=== PATIENT | female | born 1945 | race Caucasian/White ===

== ENCOUNTER → 2016-06-01 | Outpatient (CLI) | payer MEDICARE, OTHER ==
[2016-06-01 10:27] LABS: ANION GAP 13 (5-19); BLOOD UREA NITROGEN 14 mg/dL (7-20); CALCIUM 9.8 mg/dL (8.4-10.2); CARBON DIOXIDE 26 mmol/L (22-30); CHLORIDE 104 mmol/L (98-107); CREATININE RESULT 0.67 mg/dL (0.52-1.25); Direct HDL 45 mg/dL (>40); GLUCOSE 162 mg/dL (75-110); SODIUM 142.5 mmol/L (137-145); TRIGLYCERIDES 101 mg/dL (<150)
[2016-06-01 10:43] LABS: DIRECT LDL 71 mg/dL (<100)
== END ==
LOC: OD 09:05
PROVIDERS: ATTEND Family Medicine
DX: E11.65 Type 2 diabetes mellitus with hyperglycemia (principal); E78.2 Mixed hyperlipidemia; I10 Essential (primary) hypertension; Z79.899 Other long term (current) drug therapy
CPT/HCPCS: 36415; 80048; 80061; 82043; 83036; 84443

== ENCOUNTER → 2016-11-17 | Outpatient (CLI) | payer MEDICARE, OTHER ==
--- NOTE | 2016-11-17 16:04 | RADIOLOGY REPORT (SQ) ---
EXAM DESCRIPTION: U/S RETROPERITON (RENAL/AORTA) COMPLETED DATE/TIME: 11/17/2016 2:57 pm REASON FOR STUDY: UTI (N39.0) N39.0 URINARY TRACT INFECTION, SITE NOT SPECIFIED COMPARISON: None. TECHNIQUE: Dynamic and static grayscale images acquired of the kidneys and bladder and recorded on P ACS. Additional selected color Doppler and spectral images recorded. LIMITATIONS: None. FINDINGS: RIGHT KIDNEY: Normal size, 10.8 cm. Normal echogenicity. No solid or suspicious masses. No hydronephrosis. There is a 11 mm echogenic focus in a middle calyx. There is a 7 mm echogenic focu s in a middle calyx. LEFT KIDNEY: Normal size, 13.4 cm. Normal echogenicity. No solid or suspicious masses. The kidney h as a somewhat lobulated appearance versus cortical scarring. No hydronephrosis. No calcifications. BLADDER: Not evaluated. OTHER FINDINGS: No other significant finding. IMPRESSION: There appear to be intrarenal calculi in the right kidney and what may represent cortica l scarring in the left. TECHNICAL DOCUMENTATION: JOB ID: [id number] [employer]- All Rights Reserved
== END ==
LOC: RAD 13:34
PROVIDERS: ATTEND Urology
DX: N39.0 Urinary tract infection, site not specified (principal)
CPT/HCPCS: 76770

== ENCOUNTER 2016-11-24 12:32 | Emergency (ER) | payer MEDICARE, OTHER ==
[2016-11-24 13:21] VITALS: BP 145/59
--- NOTE | 2016-11-24 14:40 | ER Document Report ---
ED Cardiac - General Mode of Arrival: Ambulatory Information source: Patient TRAVEL OUTSIDE OF THE [place] IN LAST 30 DAYS: No <CORTNEY CONSTANTINO - Last Filed: 11/24/16 14:38> <SONI GIRON - Last Filed: 11/24/16 17:46> - General Chief Complaint: Chest Tightness Stated Complaint: TIGHTNESS OF CHEST Time Seen by Provider: 11/24/16 14:30 Notes: Patient is a 71-year-old female who presents to the emergency department today with complaints of chest pains which began yesterday. Patient states her symptoms began when she was picking up things and putting them in a trailer. Patient mentions that her brother this morning which has added to her recent stressors. Patient states this chest tightness lasted until arrival here. Patient states she has been pain-free for quite some time here. Patient requesting to go home. (CORTNEY CONSTANTINO) - Related Data Allergies/Adverse Reactions: aspirin Allergy (Verified 11/24/16 13:19) ciprofloxacin [From Cipro] Allergy (Verified 11/24/16 13:19) levofloxacin [From Levaquin] Allergy (Verified 11/24/16 13:19) Penicillins Allergy (Verified 11/24/16 13:19) Sulfa (Sulfonamide Antibiotics) Allergy (Verified 11/24/16 13:19) Past Medical History - General Information source: Patient - Social History Smoking Status: Never Smoker Cigarette use (# per day): No Chew tobacco use (# tins/day): No Frequency of alcohol use: None Drug Abuse: None Lives with: Family Family History: Reviewed & Not Pertinent Patient has suicidal ideation: No Patient has homicidal ideation: No - Past Medical History Cardiac Medical History: Reports: Hx Hypercholesterolemia, Hx Hypertension Endocrine Medical History: Reports: Hx Diabetes Mellitus Type 2 Past Surgical History: Reports: Hx Hysterectomy - Immunizations Hx Diphtheria, Pertussis, Tetanus Vaccination: Yes <CORTNEY CONSTANTINO - Last Filed: 11/24/16 14:38> Review of Systems - Review of Systems Constitutional: No symptoms reported EENT: No symptoms reported Cardiovascular: See HPI, Chest pain Respiratory: No symptoms reported Gastrointestinal: No symptoms reported Genitourinary: No symptoms reported Female Genitourinary: No symptoms reported Musculoskeletal: No symptoms reported Skin: No symptoms reported Hematologic/Lymphatic: No symptoms reported Neurological/Psychological: No symptoms reported -: Yes All other systems reviewed and negative <CORTNEY CONSTANTINO - Last Filed: 11/24/16 14:38> Physical Exam <CORTNEY CONSTANTINO - Last Filed: 11/24/16 14:38> <SONI GIRON - Last Filed: 11/24/16 17:46> - Vital signs Vitals: Temp Pulse Resp BP Pulse Ox 98.6 F 76 18 145/59 H 98 11/24/16 13:16 11/24/16 13:16 11/24/16 13:16 11/24/16 13:16 11/24/16 13:16 - Notes Notes: Physical Exam: General: Alert, appears well. HEENT: Normocephalic. Atraumatic. PERRL. Extraocular movements intact. Oropharynx clear. Neck: Supple. Non-tender. Respiratory: No respiratory distress. Clear and equal breath sounds bilaterally. Cardiovascular: Regular rate and rhythm. Abdominal: Normal Inspection. Non-tender. No distension. Normal Bowel Sounds. Back: Non-tender. No deformity or step off. Extremities: Moves all four extremities. Upper extremities: Normal inspection. Normal ROM. Lower extremities: Normal inspection. No edema. Normal ROM. Neurological: Normal cognition. AAOx4. Normal speech. Psychological: Normal affect. Normal Mood. Skin: Warm. Dry. Normal color. (CORTNEY CONSTANTINO) Course <CORTNEY CONSTANTINO - Last Filed: 11/24/16 14:38> - Laboratory Result Diagrams: 11/24/16 15:38 11/24/16 15:38 <SONI GIRON - Last Filed: 11/24/16 17:46> - Re-evaluation Re-evalutation: 11/24/16 16:48 Patient appears stable and in no acute distress. She is understandably upset, in part because her brother this morning and she has places to go, and in part due to the delay in completion of her evaluation. Her blood tests and chest x-ray and EKG all seem reasonable. We have been waiting for a troponin to return. She is now asking to be discharged. Given that she has not had any chest pain since she arrived and my suspicion is overall low and she has extenuating circumstances and request to be discharged, I will honor this. There is no indication to force her to stay against her will. The patient understands that we have not received the troponin level back yet and is assuming the risk of an incomplete workup. We will check on this blood test and if positive, which is not expected, we will call her back immediately. I have asked her to follow-up with her primary physician for further evaluation. 11/24/16 17:46 Troponin resulted at an undetectable level. (SONI GIRON) - Vital Signs Vital signs: Temp Pulse Resp BP Pulse Ox 98.6 F 76 18 145/59 H 98 11/24/16 13:16 11/24/16 13:16 11/24/16 13:16 11/24/16 13:16 11/24/16 13:16 - Laboratory Laboratory results interpreted by wv: 11/24/16 11/24/16 15:38 15:38 Hgb 10.3 L Hct 31.9 L MCV 67 L MCH 21.7 L RDW 16.5 H Glucose 185 H AST 38 H ALT 54 H Discharge <CORTNEY CONSTANTINO - Last Filed: 11/24/16 14:38> <SONI GIRON - Last Filed: 11/24/16 17:46> - Discharge Condition: Good Disposition: HOME, SELF-CARE Instructions: Chest Pain of Unclear Cause ([facility]) Additional Instructions: Your EKG and blood work overall looks good, however we had not received your cardiac enzyme back upon discharge. We will call you if it is positive, but this is not the usual format. We are discharging you due to your request for discharge and your extenuating circumstances. Please return to the emergency department at any time if you have more pain or other urgent concerns. Follow- up with your primary physician for ongoing evaluation and care. Scribe Documentation - Scribe Written by David:: David Paulino, 11/24/2016 1440 acting as scribe for :: Adelina <CORTNEY CONSTANTINO - Last Filed: 11/24/16 14:38>
[2016-11-24 15:55] LABS: ABSOLUTE EOSINOPHILS # (AUTO) 0.1 10^3/uL (0.0-0.6); ABSOLUTE LYMPHOCYTES (AUTO) 2.1 10^3/uL (0.5-4.7); ABSOLUTE MONOCYTES (AUTO) 0.4 10^3/uL (0.1-1.4); ABSOLUTE NEUT (AUTO) 4.7 10^3/uL (1.7-8.2); BASOPHILS % (AUTO) 0.6 % (0-2); EOSINOPHILS % (AUTO) 1.1 % (0-6); HEMATOCRIT 31.9 % (36.0-47.0); HEMOGLOBIN 10.3 g/dL (12.0-15.5); LYMPHOCYTES % (AUTO) 29.1 % (13-45); MEAN CORPUSCULAR HEMOGLOBIN 21.7 pg (27.0-33.4); MEAN CORPUSCULAR HGB CONC 32.2 g/dL (32.0-36.0); MEAN CORPUSCULAR VOLUME 67 fl (80-97); MONOCYTES % (AUTO) 5.9 % (3-13); RED BLOOD COUNT 4.74 10^6/uL (3.72-5.28); RED CELL DISTRIBUTION WIDTH 16.5 % (11.5-14.0); SEGMENTED NEUTROPHILS % (AUTO) 63.3 % (42-78); WHITE BLOOD COUNT 7.4 10^3/uL (4.0-10.5)
--- NOTE | 2016-11-24 16:04 | RADIOLOGY REPORT (SQ) ---
EXAM DESCRIPTION: CHEST PA/LAT COMPLETED DATE/TIME: 11/24/2016 3:54 pm REASON FOR STUDY: chest pain COMPARISON: None. EXAM PARAMETERS: NUMBER OF VIEWS: two views TECHNIQUE: Digital Frontal and Lateral radiographic views of the chest acquired. RADIATION DOSE: NA LIMITATIONS: none FINDINGS: LUNGS AND PLEURA: No opacities, masses or pneumothorax. No pleural effusion. MEDIASTINUM AND HILAR STRUCTURES: No masses or contour abnormalities. HEART AND VASCULAR STRUCTURES: Heart normal size. No evidence for failure. BONES: No acute findings. Convex rightward thoracic spine curvature. HARDWARE: None in the chest. OTHER: No other significant finding. IMPRESSION: NO SIGNIFICANT RADIOGRAPHIC FINDING IN THE CHEST. TECHNICAL DOCUMENTATION: JOB ID: [id number] [employer]- All Rights Reserved
[2016-11-24 16:11] LABS: ALANINE AMINOTRANSFERASE 54 U/L (9-52); ALBUMIN 4.5 g/dL (3.5-5.0); ALKALINE PHOSPHATASE 62 U/L (38-126); ANION GAP 17 (5-19); ASPARTATE AMINO TRANSFERASE 38 U/L (14-36); BILIRUBIN,DIRECT 0.3 mg/dL (0.0-0.4); BILIRUBIN,TOTAL 0.4 mg/dL (0.2-1.3); BLOOD UREA NITROGEN 12 mg/dL (7-20); CALCIUM 9.8 mg/dL (8.4-10.2); CARBON DIOXIDE 23 mmol/L (22-30); CHLORIDE 104 mmol/L (98-107); CREATININE RESULT 0.63 mg/dL (0.52-1.25); GLUCOSE 185 mg/dL (75-110); POTASSIUM 4.8 mmol/L (3.6-5.0); SODIUM 143.8 mmol/L (137-145); TOTAL PROTEIN 7.1 g/dL (6.3-8.2)
--- NOTE | 2016-11-24 18:26 | EKG REPORT ---
SEVERITY:- ABNORMAL ECG - SINUS RHYTHM LEFT VENTRICULAR HYPERTROPHY : Confirmed by: Otoniel Webster MD 24-Nov-2016 18:26:40
== END 2016-11-24 17:00 | disposition home or self-care (01) ==
LOC: ER 12:32
DX: F43.20 Adjustment disorder, unspecified (principal); R07.89 Other chest pain; E78.00 Pure hypercholesterolemia, unspecified; I10 Essential (primary) hypertension; E11.9 Type 2 diabetes mellitus without complications; Z88.6 Allergy status to analgesic agent; Z88.3 Allergy status to other anti-infective agents; Z88.0 Allergy status to penicillin; Z88.2 Allergy status to sulfonamides; Z90.710 Acquired absence of both cervix and uterus
CPT/HCPCS: 36415; 71020; 80053; 84484; 85025; 93005; 93010; 99285

== ENCOUNTER → 2016-12-01 | Outpatient (CLI) | payer MEDICARE, OTHER | LOC: OD 11:58 | PROVIDERS: ATTEND Family Medicine | DX: D64.9 Anemia, unspecified (principal) | CPT/HCPCS: 36415; 82607; 82728; 83540; 83550 ==

== ENCOUNTER → 2016-12-25 | Outpatient (CLI) | payer MEDICARE, OTHER ==
--- NOTE | 2016-12-25 14:58 | RADIOLOGY REPORT (SQ) ---
EXAM DESCRIPTION: CT CHEST WITHOUT COMPLETED DATE/TIME: 12/25/2016 2:29 pm REASON FOR STUDY: R22.2 LOCALIZED SWELLING, MASS AND LUMP, TRUNK R22.2 LOCALIZED SWELLING, MASS AND LUMP, TRUNK COMPARISON: None. TECHNIQUE: CT scan performed of the chest without intravenous contrast. Images reviewed with lung, soft tissue and bone windows. Reconstructed coronal and sagittal MPR images reviewed. All images st ored on PACS. All CT scanners at this facility use dose modulation, iterative reconstruction, and/or weight based d osing when appropriate to reduce radiation dose to as low as reasonably achievable (ALARA). [facility]: Dose Right [facility]: CareDose [facility]: Dose Right [facility]: Teradose 4D [facility]: [employer] RADIATION DOSE: Up-to-date CT equipment and radiation dose reduction techniques were employed. CTDIv ol: 10.7 mGy. DLP: 380 mGy-cm. mGy. LIMITATIONS: No technical limitations. FINDINGS: LUNGS AND PLEURA: 1.4 cm nodule in the right lower lobe. No effusions. HILAR AND MEDIASTINAL STRUCTURES: No identified masses or abnormal nodes. No obvious aneurysm. HEART AND VASCULAR STRUCTURES: Mild cardiomegaly. No aneurysm. No pericardial effusion. UPPER ABDOMEN: Gallstones. THYROID AND OTHER SOFT TISSUES: No masses. No adenopathy. BONES: No significant finding. HARDWARE: None in the chest. OTHER: No other significant findings. IMPRESSION: Solitary pulmonary nodule. Consider PET-CT follow-up. TECHNICAL DOCUMENTATION: JOB ID: [id number] Quality ID # [id number]: Final reports with documentation of one or more dose reduction techniques (e.g., Au tomated exposure control, adjustment of the mA and/or kV according to patient size, use of iterative reconstruction technique) 2010 [employer]- All Rights Reserved
== END ==
LOC: RAD 13:43
PROVIDERS: ATTEND Family Medicine
DX: R22.2 Localized swelling, mass and lump, trunk (principal)
CPT/HCPCS: 71250

== ENCOUNTER → 2016-12-31 | Outpatient (CLI) | payer MEDICARE, OTHER ==
--- NOTE | 2017-01-01 11:47 | RADIOLOGY REPORT (SQ) ---
EXAM DESCRIPTION: PET CT LIMITED COMPLETED DATE/TIME: 12/31/2016 8:09 pm REASON FOR STUDY: SOLITARY PULMONARY NODULE R91.1 SOLITARY PULMONARY NODULE COMPARISON: CT abdomen and pelvis 02/11/2009 CT chest 12/25/2016 RADIONUCLIDE AND DOSE: 11.6 mCi F18 FDG The route of agent administration: Intravenous FASTING BLOOD SUGAR: 157 mg/dl CONTRAST TYPE AND DOSE: No CT contrast given. TECHNIQUE: Blood glucose level was verified. Above dose of FDG was injected intravenously. 2-D seg mented attenuation correction images were obtained from the base of the skull to the midthighs. Nonc ontrast CT images were obtained for attenuation correction and fusion with emission images. CT image s were performed without oral or intravenous contrast and are not sensitive for parenchymal lesions. A series of overlapping emission PET images were obtained. Images reviewed and manipulated at [facility] work station by the radiologist. Images stored on PACS. LIMITATIONS: None. FINDINGS: HEAD AND NECK: No areas of abnormal metabolic activity in the soft tissues of the head and neck. CHEST: Just above the left hemidiaphragm, abutting left pericardium, a 1.8 x 1.5 cm solid nodule is p resent on axial image 97. Mildly irregular margins. 1.2 SUV. This nodule is similar compared to CT exam 12/25/2016. Review of prior CT abdomen pelvis 02/11/2009 demonstrates that this nodule was pre sent, 1.3 x 1.1 cm in size. This nodule is indeterminate for malignancy. SUV is below blood pool ac tivity, however because this nodule is just above the left hemidiaphragm, false negative CT could occ urred due to misregistration. Slow growth of this nodule since 2008 could indicate a malignancy of v suzette low malignant potential, or could be a postinflammatory finding. ABDOMEN AND PELVIS: No areas of abnormal metabolic activity in the abdomen or pelvis. Expected physi ologic activity is present in the genitourinary system and bowel. PROXIMAL LOWER EXTREMITIES: No areas of abnormal metabolic activity in the soft tissues of the lower extremities. BONES: No abnormal metabolic activity in the visualized skeleton. ADDITIONAL CT FINDINGS: Small hiatal hernia. Tiny stones in the gallbladder. 9 mm right renal pelvi s calculus 580 Hounsfield units. Multiple other less than 5 mm intrarenal nonobstructive right kidne y stones. Old postsurgical changes from sigmoid colectomy and post colostomy reversal. OTHER: Liver background activity 2.3 SUV. Blood pool background activity 1.9 SUV. IMPRESSION: Indeterminate nodule at the left lung base just above the hemidiaphragm. Mild enlargeme nt since old CT abdomen pelvis in 2008. CT could underestimate the metabolic activity given its clos e location to the hemidiaphragm. This lesion would be extremely difficult to biopsy under CT guidanc e. Consider either CT surveillance for follow-up or, consultation with thoracic surgery to discuss m ore aggressive treatment options such as VATS resection versus [employer] TECHNICAL DOCUMENTATION: JOB ID: [id number] [employer]- All Rights Reserved
== END ==
LOC: RAD 17:32
PROVIDERS: ATTEND Family Medicine
DX: R91.1 Solitary pulmonary nodule (principal)
CPT/HCPCS: 78814; A9552

== ENCOUNTER → 2017-02-28 | Outpatient (CLI) | payer MEDICARE, OTHER | LOC: OD 12:39 | PROVIDERS: ATTEND Family Medicine | DX: E11.65 Type 2 diabetes mellitus with hyperglycemia (principal) | CPT/HCPCS: 36415; 83036 ==

== ENCOUNTER → 2017-05-10 | Outpatient (CLI) | payer MEDICARE, OTHER ==
--- NOTE | 2017-05-10 14:02 | RADIOLOGY REPORT (SQ) ---
EXAM DESCRIPTION: ACUTE ABDOMEN SERIES COMPLETED DATE/TIME: 05/10/2017 12:37 pm REASON FOR STUDY: CONSTIPATION, UNSPECIFIED,UNSPECIFIED ABDOMINAL PAIN K59.00 CONSTIPATION, UNSPECI FIED R10.9 UNSPECIFIED ABDOMINAL PAIN COMPARISON: CT abdomen pelvis 02/11/2009, CT chest 12/25/2016, PET-CT 12/31/2016 Two-view chest 11/24/2016 NUMBER OF VIEWS: Three views. TECHNIQUE: Frontal chest, supine abdomen and upright abdomen radiographic images acquired. LIMITATIONS: None. FINDINGS: CHEST: No acute infiltrates. No pleural effusion or pneumothorax. Small stable left basi lar pulmonary nodule described on PET-CT 12/31/2016 is difficult to visualize by plain film. No card iomegaly. Maria Vcitoria unremarkable. Mild convex rightward thoracic curvature. FREE AIR: None. No abnormal gas collections. BOWEL GAS PATTERN: Nonobstructive pattern. No dilated loops or air fluid levels. CALCIFICATIONS: 9 mm nonobstructive stone right renal pelvis. HARDWARE: Clips in the right lower quadrant, surgical anastomotic asad at the rectosigmoid. SOFT TISSUES: No gross mass or suggestion of organomegaly. BONES: Osteopenic OTHER: No other significant finding. IMPRESSION: Nonobstructive bowel gas pattern. TECHNICAL DOCUMENTATION: JOB ID: [id number] [employer]- All Rights Reserved Reading location - IP/workstation name: [email or web address]
== END ==
LOC: OD 12:24
PROVIDERS: ATTEND Family Medicine
DX: K59.00 Constipation, unspecified (principal); R10.9 Unspecified abdominal pain
CPT/HCPCS: 74022

== ENCOUNTER → 2017-05-21 | Outpatient (CLI) | payer MEDICARE, OTHER ==
[2017-05-21 10:16] LABS: ANION GAP 12 (5-19); BLOOD UREA NITROGEN 12 mg/dL (7-20); CALCIUM 9.6 mg/dL (8.4-10.2); CARBON DIOXIDE 24 mmol/L (22-30); CHLORIDE 104 mmol/L (98-107); CHOLESTEROL 130.98 mg/dL (0-200); GLUCOSE 197 mg/dL (75-110); POTASSIUM 4.7 mmol/L (3.6-5.0); SODIUM 140.1 mmol/L (137-145); TRIGLYCERIDES 139 mg/dL (<150)
[2017-05-21 10:30] LABS: DIRECT LDL 69 mg/dL (<100)
== END ==
LOC: OD 08:57
PROVIDERS: ATTEND Family Medicine
DX: E11.65 Type 2 diabetes mellitus with hyperglycemia (principal); E78.2 Mixed hyperlipidemia; I10 Essential (primary) hypertension; Z79.899 Other long term (current) drug therapy
CPT/HCPCS: 36415; 80048; 80061; 81001; 82043; 83036; 84443

== ENCOUNTER 2017-07-22 10:45 | Emergency (ER) | payer MEDICARE, OTHER ==
[2017-07-22] MEDS ORDERED: METOPROLOL TARTRATE PF/INJ 5 MG/5 ML SDV IV ONE (11:01)
[2017-07-22] MEDS ORDERED: VERAPAMIL HCL INJ/PF 5 MG/2 ML SDV IV ONE (11:01)
--- NOTE | 2017-07-22 11:15 | ER Document Report ---
ED Cardiac - General Chief Complaint: Palpitations Stated Complaint: HEART PROBLEMS Time Seen by Provider: 07/22/17 11:00 Notes: Patient began noting palpitations about 9 AM this morning. EMS was called and they gave the patient a dental card 6, 12, and 12 mg IV and report that the patient's rhythm slowed, but remained in atrial fibrillation. They gave her a bolus of 150 mg of amiodarone and transported her to the emergency department. Currently, patient's heart rate is about 120 and irregular and appears to me to be atrial fibrillation. She denies any chest pains or discomfort. Has a history of previous PVCs as well as a couple of episodes like the current one. She had her first episode of these palpitations a couple of months ago while she was getting a colonoscopy. She subsequently went to her facilities maintenance technician and had an echocardiogram 2 weeks ago and a four-day monitor that she wore a couple of months ago and they showed her to be having episodes of irregular heartbeat she was previously on Inderal but that was discontinued and she was put on metoprolol 100 mg daily. She is also on amlodipine 10 mg daily for her blood pressure. She has continued to have irregular beats and several similar episodes during the past 2 months. Her only complaint today is of feeling weak. Has some shortness of breath when she gets anxious which he feels at this time. Has not been sick in the recent day or 2. No fevers. No history of thyroid disease. Patient says that she has she was on propanolol, but that was discontinued and she was started on metoprolol succinate 100 mg daily Sunday. Patient has had colon cancer surgery a couple of years ago. Hysterectomy. IDDM. Hypertension. Cholesterol. She does not take aspirin because when she was 5 years old, she got a rapid heartbeat from taking aspirin. She has never had aspirin since then. She did not develop hives or wheezing or any other typical symptoms of allergic reaction. Not on any other anticoagulation. TRAVEL OUTSIDE OF THE [place] IN LAST 30 DAYS: No - Related Data Allergies/Adverse Reactions: aspirin Allergy (Verified 07/22/17 11:13) ciprofloxacin [From Cipro] Allergy (Verified 07/22/17 11:13) levofloxacin [From Levaquin] Allergy (Verified 07/22/17 11:13) Penicillins Allergy (Verified 07/22/17 11:13) Sulfa (Sulfonamide Antibiotics) Allergy (Verified 07/22/17 11:13) Past Medical History - Social History Smoking Status: Never Smoker Chew tobacco use (# tins/day): No Frequency of alcohol use: None Drug Abuse: None Family History: Reviewed & Not Pertinent Patient has suicidal ideation: No Patient has homicidal ideation: No - Past Medical History Cardiac Medical History: Reports: Hx Atrial Fibrillation, Hx Hypercholesterolemia, Hx Hypertension Denies: Hx Coronary Artery Disease, Hx Heart Attack Endocrine Medical History: Reports: Hx Diabetes Mellitus Type 1 Malignancy Medical History: Reports: Hx Colorectal Cancer - Diagnosed 2 years ago and had surgery Past Surgical History: Reports: Hx Hysterectomy - Immunizations Hx Diphtheria, Pertussis, Tetanus Vaccination: Yes Review of Systems - Review of Systems Notes: REVIEW OF SYSTEMS: CONSTITUTIONAL : Denies fever. Feels weak. EENT: Denies eye, ear, nose or mouth or throat pain or other symptoms. CARDIOVASCULAR: Denies chest pain. RESPIRATORY: Denies cough, chest congestion, or shortness of breath, except that she has shortness of breath when anxious like she is now. GASTROINTESTINAL: Denies abdominal pain or nausea, vomiting, or diarrhea. GENITOURINARY: Denies difficulty or painful urinating, urinary frequency, blood in urine. MUSCULOSKELETAL: Denies back or neck pain. Denies joint pain or swelling. SKIN: Denies rash or skin lesions. NEUROLOGICAL: Denies LOC or altered mental status. Denies headache. Denies sensory loss or motor deficits. ALL OTHER SYSTEMS REVIEWED AND NEGATIVE. Physical Exam - Vital signs Vitals: Temp 98.4 F 07/22/17 11:00 Interpretation: Hypertensive, Tachycardic - Irregularly irregular. No: Hypotensive, Hypoxic - Notes Notes: PHYSICAL EXAMINATION: GENERAL: Well-appearing, in no acute distress. Anxious. Monitor shows tachycardia and hypertension. HEAD: Atraumatic, normocephalic. EYES: Pupils equal round and reactive to light, extraocular movements intact. ENT: oropharynx clear without exudates. Moist mucous membranes. NECK: Normal range of motion, supple. LUNGS: Breath sounds clear and equal bilaterally. HEART: Irregularly irregular rhythm at about 1 20/min. ABDOMEN: Soft, nontender. No guarding or rebound. No masses. BACK: No tenderness throughout entire back. EXTREMITIES: Normal range of motion without pain. NEUROLOGICAL: Normal speech, normal gait. Normal sensory, motor, and reflex exams. Awake, alert, and oriented x3. Cranial nerves normal. PSYCH: Normal mood, normal affect. SKIN: Warm, dry, no rashes. Course - Re-evaluation Re-evalutation: 07/22/17 11:28 Patient appears to be in a sinus rhythm at this time and her repeat EKG confirms that she has a sinus tachycardia at a rate of 108. Has no symptoms or complaints at this time. We will check lab work and decide what additional treatment is necessary. 07/22/17 13:13 Unable to reach patient's facilities maintenance technician who now practices in [place]. Spoke with Dr. Barrios. He recommends the patient be on anticoagulation at least baby aspirin daily. I have advised the patient. He also said that she could increase her metoprolol to a half a tablet at bedtime additionally if she continues to have palpitations. 07/22/17 13:29 I stressed to the patient that she contact her facilities maintenance technician, Dr. Laboy, tomorrow morning for any alternative measures for treating her condition. Patient is asymptomatic at the time of her discharge. Her EKG is a sinus rhythm at about 100. Other vital signs were all normal. All lab studies are essentially normal. - Vital Signs Vital signs: Temp Pulse Resp BP Pulse Ox 98.2 F 15 124/51 L 96 07/22/17 13:30 07/22/17 13:16 07/22/17 13:16 07/22/17 13:16 - Laboratory Result Diagrams: 07/22/17 10:52 07/22/17 10:52 Laboratory results interpreted by me: 07/22/17 07/22/17 10:52 10:52 Hgb 10.6 L Hct 34.5 L MCV 67 L MCH 20.6 L MCHC 30.7 L RDW 16.8 H Carbon Dioxide 20 L Glucose 310 H AST 47 H ALT 53 H Critical Care Note - Critical Care Note Total time excluding time spent on procedures (mins): 30 Discharge - Discharge Clinical Impression: Atrial fibrillation with rapid ventricular response, Hypertension Condition: Stable Disposition: HOME, SELF-CARE Additional Instructions: Atrial Fibrillation Atrial fibrillation is an abnormal heart rhythm, caused by irregular electrical circuits in the upper heart chamber. It can be caused by heart valve disease, hardening of the arteries, or metabolic problems such as thyroid disease, or may occur without a clear cause. Atrial fibrillation may occur only occasionally, or may be chronic. Atrial fibrillation often results in a very fast heart rate, with palpitations, lightheadedness, and shortness of breath. Treatment is to slow the abnormally fast rate, and to convert the rhythm back to normal, if possible. Many patients stay in atrial fibrillation for years without symptoms or complications. Your doctor will decide whether you can be converted back to a normal heart rhythm. Contact the doctor or emergency medical system at once if you develop chest pain, shortness of breath, or severe lightheadedness, or if you develop any disturbance of consciousness, problems with speech, or localized weakness. HIGH BLOOD PRESSURE REQUIRING TREATMENT: Your blood pressure is high. This is called "hypertension." Today's reading was (normal is less than 140/90). Your history and exam suggest that this is not a temporary problem. You need treatment of your blood pressure. If left untreated, high blood pressure greatly increases your risk of heart attack and stroke. Please don't ignore this problem. If you have blood pressure medicine but aren't using it regularly, start taking it again. Some simple things you can do to help are: Get some aerobic exercise for at least 20 minutes on a daily basis. (See your doctor before beginning any new exercise program.) Eat a low-fat diet. Lose excess weight. Avoid salty foods and avoid adding salt to any of the foods you eat. Avoid diet pills, decongestants, "energizing" herbs, and other medicines that elevate blood pressure. There are many different medicines that treat blood pressure. If your medication causes unpleasant side effects, call your doctor. There are others you can try. Treating hypertension is a life-long investment in your health. You are currently on a calcium channel diana called amlodipine. Continue to take it as you are taking it currently. CALCIUM CHANNEL BLOCKERS: A medication of the calcium channel diana type has been prescribed for you. Examples of this type of medicine are Calan, Isoptin, Procardia, and Cardizem. These medicines have a variety of uses, including prevention of angina attacks, treatment of blood pressure, regulation of certain heart rhythm problems, and prevention of migraine headaches. Calcium channel blockers work by interfering with the flow of calcium in cell membranes. This results in dilation of blood vessels, and slowing of electrical conduction in the heart. A slight dizziness (due to a fall in blood pressure) may occur with the first dose, and sometimes even with later doses. This may make you prone to dizziness if you stand up suddenly. Call the doctor if lightheadedness is severe, or if you develop palpitations, shortness of breath, or any other new or alarming symptoms. You are also currently on a beta-diana metoprolol succinate 100 mg daily. Continue to take this medication as prescribed, but you may also take an extra half of a tablet at bedtime if you notice frequent PVCs or palpitations. BETA BLOCKERS: You have been given a prescription for a beta-diana medication. This class of drugs is used for many purposes, including angina, high blood pressure , heart rhythm disturbances, tremors, and migraines. The medication works by interfering with the effects of the sympathetic nervous system (the sympathetic system has adrenaline-like effects of constricting blood vessels, increasing heart rate, and increasing blood pressure). This medication is usually well-tolerated. However, some patients have side effects such as fatigue, depression, or dizziness. Persons with asthma may develop wheezing from this medicine. Contact your doctor if you are bothered by any side effects. Do not take any cold or allergy medication without first consulting your doctor. Do not stop the medicine without consulting your doctor, as a "rebound " worsening of your condition can result. Aspirin Aspirin has been shown to have a beneficial effect on blood circulation by reducing the clotting effect of platelets in the blood. These beneficial effects can be achieved by taking just a single baby (62.5 mg) aspirin a day. It is recommended that any person over the age of forty take a single baby aspirin every day for heart and brain circulation, unless you are allergic to aspirin or have some significant bleeding disorder. It is strongly recommended that people who have proven cardiac or blood circulation disturbances should take a baby aspirin every day. FOLLOW-UP CARE: If you have been referred to a physician for follow-up care, call the physician s office for an appointment as you were instructed or within the next two days. If you experience worsening or a significant change in your symptoms, notify the physician immediately or return to the Emergency Department at any time for re-evaluation. Contact your facilities maintenance technician, Dr. Laboy, in [place] tomorrow morning to let him know that you were here and treated and to prescribe additional medications or make other changes in your medications that he feels appropriate. Referrals: DK MARTIN MD [Primary Care Provider] - Follow up as needed FAREED LABOY MD [NO LOCAL MD] - Follow up tomorrow
[2017-07-22 11:27] LABS: ABSOLUTE EOSINOPHILS # (AUTO) 0.1 10^3/uL (0.0-0.6); ABSOLUTE LYMPHOCYTES (AUTO) 1.1 10^3/uL (0.5-4.7); ABSOLUTE MONOCYTES (AUTO) 0.5 10^3/uL (0.1-1.4); ABSOLUTE NEUT (AUTO) 5.9 10^3/uL (1.7-8.2); BASOPHILS % (AUTO) 0.4 % (0-2); EOSINOPHILS % (AUTO) 1.7 % (0-6); HEMATOCRIT 34.5 % (36.0-47.0); HEMOGLOBIN 10.6 g/dL (12.0-15.5); LYMPHOCYTES % (AUTO) 14.5 % (13-45); MEAN CORPUSCULAR HEMOGLOBIN 20.6 pg (27.0-33.4); MEAN CORPUSCULAR HGB CONC 30.7 g/dL (32.0-36.0); MEAN CORPUSCULAR VOLUME 67 fl (80-97); MONOCYTES % (AUTO) 6.5 % (3-13); PLATELET COUNT 270 10^3/uL (150-450); RED BLOOD COUNT 5.15 10^6/uL (3.72-5.28); RED CELL DISTRIBUTION WIDTH 16.8 % (11.5-14.0); SEGMENTED NEUTROPHILS % (AUTO) 76.9 % (42-78); TOTAL CELLS COUNTED % (AUTO) 100 %; WHITE BLOOD COUNT 7.7 10^3/uL (4.0-10.5)
[2017-07-22 11:33] LABS: ALANINE AMINOTRANSFERASE 53 U/L (9-52); ALBUMIN 4.2 g/dL (3.5-5.0); ALKALINE PHOSPHATASE 62 U/L (38-126); ANION GAP 18 (5-19); ASPARTATE AMINO TRANSFERASE 47 U/L (14-36); BILIRUBIN,DIRECT 0.2 mg/dL (0.0-0.4); BILIRUBIN,TOTAL 0.2 mg/dL (0.2-1.3); BLOOD UREA NITROGEN 12 mg/dL (7-20); CALCIUM 9.6 mg/dL (8.4-10.2); CARBON DIOXIDE 20 mmol/L (22-30); CHLORIDE 104 mmol/L (98-107); GLUCOSE 310 mg/dL (75-110); POTASSIUM 4.3 mmol/L (3.6-5.0); SODIUM 142.3 mmol/L (137-145)
[2017-07-22 11:45] LABS: TROPONIN I < 0.012 ng/mL
[2017-07-22 11:50] LABS: FREE T4 (FREE THYROXINE) 1.14 ng/dL (0.78-2.19)
[2017-07-22 12:04] LABS: THYROID STIMULATING HORMONE 2.07 uIU/mL (0.47-4.68)
--- NOTE | 2017-07-22 12:34 | RADIOLOGY REPORT (SQ) ---
EXAM DESCRIPTION: CHEST SINGLE VIEW COMPLETED DATE/TIME: 07/22/2017 12:19 pm REASON FOR STUDY: Palpitations, SVT, SOB COMPARISON: 2016 NUMBER OF VIEWS: One view. TECHNIQUE: Single frontal radiographic view of the chest acquired. LIMITATIONS: None. FINDINGS: LUNGS AND PLEURA: No opacities, masses or pneumothorax. No pleural effusion. MEDIASTINUM AND HILAR STRUCTURES: No masses. Contour normal. HEART AND VASCULAR STRUCTURES: Heart normal in size. Normal vasculature. BONES: Mild chronic scoliosis. HARDWARE: None in the chest. OTHER: No other significant finding. IMPRESSION: NO SIGNIFICANT RADIOGRAPHIC FINDING IN THE CHEST. TECHNICAL DOCUMENTATION: JOB ID: [id number] [employer]- All Rights Reserved Reading location - IP/workstation name: [email or web address]
[2017-07-22 13:22] VITALS: BP 124/51
--- NOTE | 2017-07-23 07:43 | EKG REPORT ---
SEVERITY:- ABNORMAL ECG - SINUS TACHYCARDIA LVH WITH SECONDARY REPOLARIZATION ABNORMALITY LAD : Confirmed by: Otoniel Webster MD 23-Jul-2017 07:42:36
--- NOTE | 2017-07-23 07:44 | EKG REPORT ---
SEVERITY:- ABNORMAL ECG - SINUS TACHYCARDIA WITH PACS LVH WITH SECONDARY REPOLARIZATION ABNORMALITY : Confirmed by: Otoniel Webster MD 23-Jul-2017 07:43:41
== END 2017-07-22 13:30 | disposition home or self-care (01) ==
LOC: ER 10:45
DX: I48.91 Unspecified atrial fibrillation (principal); I10 Essential (primary) hypertension; Z79.899 Other long term (current) drug therapy; R00.0 Tachycardia, unspecified; R53.1 Weakness; F41.9 Anxiety disorder, unspecified; R06.02 Shortness of breath; E10.9 Type 1 diabetes mellitus without complications; Z85.048 Personal history of other malignant neoplasm of rectum, rectosigmoid junction, and anus; Z88.1 Allergy status to other antibiotic agents; Z88.0 Allergy status to penicillin; Z88.2 Allergy status to sulfonamides; Z88.6 Allergy status to analgesic agent
CPT/HCPCS: 93005; 99291; 96374; 36415; 84439; 82553; 84443; 85025; 80053; 84484; 71045; 93010; J3490

== ENCOUNTER → 2017-09-27 | Outpatient (CLI) | payer MEDICARE, OTHER ==
--- NOTE | 2017-09-27 15:34 | RADIOLOGY REPORT (SQ) ---
EXAM DESCRIPTION: CT CHEST WITHOUT COMPLETED DATE/TIME: 09/27/2017 12:55 pm REASON FOR STUDY: COUGH (R05), OTHER NONSPECIFIC ABN FINDING OF LUNG FIELD (R91.8) R91.8 OTHER NONS PECIFIC ABNORMAL FINDING OF LUNG FIELD R05 COUGH COMPARISON: PET-CT 12/31/2016 CT chest 12/25/2016 CT abdomen pelvis 02/11/2009 TECHNIQUE: CT scan performed of the chest without intravenous contrast. Images reviewed with lung, soft tissue and bone windows. Reconstructed coronal and sagittal MPR images reviewed. All images st ored on PACS. All CT scanners at this facility use dose modulation, iterative reconstruction, and/or weight based d osing when appropriate to reduce radiation dose to as low as reasonably achievable (ALARA). [facility]: Dose Right [facility]: CareDose [facility]: Dose Right [facility]: Teradose 4D [facility]: Smart [employer] RADIATION DOSE: CT Rad equipment meets quality standard of care and radiation dose reduction techniq ues were employed. CTDIvol: 13.5 mGy. DLP: 473 mGy-cm. mGy. LIMITATIONS: No technical limitations. FINDINGS: LUNGS AND PLEURA: Again, a 1.8 x 1.5 cm nodule is present just above the left hemidiaphrag m adjacent to the left heart border. This is unchanged from 03/02/2016 PET-CT. Minimal growth since 2008, when the nodule measured about 12 to 13 mm in greatest diameter. This nodule is of low maligna nt potential based on imaging, and follow-up CT is recommended in September 2018. Lungs are otherwise unremarkable. No pleural effusion. No pneumothorax. HILAR AND MEDIASTINAL STRUCTURES: No identified masses or abnormal nodes. No obvious aneurysm. Tiny retrocardiac hiatal hernia. HEART AND VASCULAR STRUCTURES: No aneurysm. No pericardial effusion. Calcified aortic valve. UPPER ABDOMEN: Fatty liver THYROID AND OTHER SOFT TISSUES: No masses. No adenopathy. BONES: No significant finding. HARDWARE: None in the chest. OTHER: No other significant findings. IMPRESSION: Stable 1.8 x 1.5 cm nodule just above the left hemidiaphragm. No CT findings to explain history of cough TECHNICAL DOCUMENTATION: JOB ID: [id number] Quality ID # [id number]: Final reports with documentation of one or more dose reduction techniques (e.g., Au tomated exposure control, adjustment of the mA and/or kV according to patient size, use of iterative reconstruction technique) 2010 [employer]- All Rights Reserved Reading location - IP/workstation name: [email or web address]
== END ==
LOC: RAD 12:41
PROVIDERS: ATTEND Internal Medicine Pulmonary Disease
DX: R91.8 Other nonspecific abnormal finding of lung field (principal); R05 Cough
CPT/HCPCS: 71250

== ENCOUNTER → 2017-11-07 | Outpatient (CLI) | payer MEDICARE, OTHER ==
[2017-11-07 14:17] LABS: ABSOLUTE EOSINOPHILS # (AUTO) 0.1 10^3/uL (0.0-0.6); ABSOLUTE LYMPHOCYTES (AUTO) 1.6 10^3/uL (0.5-4.7); ABSOLUTE MONOCYTES (AUTO) 0.4 10^3/uL (0.1-1.4); ABSOLUTE NEUT (AUTO) 5.5 10^3/uL (1.7-8.2); ABSOLUTE RETICS # 0.103 10^6/uL (0.028-0.122); BASOPHILS % (AUTO) 0.2 % (0-2); EOSINOPHILS % (AUTO) 0.8 % (0-6); HEMATOCRIT 31.6 % (36.0-47.0); LYMPHOCYTES % (AUTO) 20.7 % (13-45); MEAN CORPUSCULAR HEMOGLOBIN 20.7 pg (27.0-33.4); MEAN CORPUSCULAR HGB CONC 31.6 g/dL (32.0-36.0); MEAN CORPUSCULAR VOLUME 65 fl (80-97); MONOCYTES % (AUTO) 5.9 % (3-13); PLATELET COUNT 331 10^3/uL (150-450); RED BLOOD COUNT 4.83 10^6/uL (3.72-5.28); RED CELL DISTRIBUTION WIDTH 17.7 % (11.5-14.0); RETICULOCYTE COUNT (AUTO) 2.12 % (0.66-2.85); SEGMENTED NEUTROPHILS % (AUTO) 72.4 % (42-78); TOTAL CELLS COUNTED % (AUTO) 100 %; WHITE BLOOD COUNT 7.5 10^3/uL (4.0-10.5)
== END ==
LOC: OD 13:41
PROVIDERS: ATTEND Family Medicine
DX: D64.9 Anemia, unspecified (principal); R42 Dizziness and giddiness
CPT/HCPCS: 36415; 85025; 85045

== ENCOUNTER → 2017-11-30 | Outpatient (CLI) | payer MEDICARE, OTHER | LOC: OD 12:14 | PROVIDERS: ATTEND Family Medicine | DX: E11.65 Type 2 diabetes mellitus with hyperglycemia (principal); R25.3 Fasciculation | CPT/HCPCS: 36415; 83036; 84132 ==

== ENCOUNTER → 2018-05-14 | Outpatient (CLI) | payer MEDICARE, OTHER ==
[2018-05-14 11:11] LABS: ANION GAP 11 (5-19); BLOOD UREA NITROGEN 12 mg/dL (7-20); CALCIUM 9.9 mg/dL (8.4-10.2); CARBON DIOXIDE 26 mmol/L (22-30); CHLORIDE 103 mmol/L (98-107); CHOLESTEROL 136.67 mg/dL (0-200); GLUCOSE 167 mg/dL (75-110); POTASSIUM 4.5 mmol/L (3.6-5.0); SODIUM 139.6 mmol/L (137-145); TRIGLYCERIDES 144 mg/dL (<150)
[2018-05-14 11:23] LABS: DIRECT LDL 87 mg/dL (<100)
[2018-05-15 10:38] LABS: CREATININE URINE 59.3 mg/dL (Not Estab.); MICROALBUMIN URINE 79.2 ug/mL (Not Estab.)
== END ==
LOC: OD 09:39
PROVIDERS: ATTEND Family Medicine
DX: E11.65 Type 2 diabetes mellitus with hyperglycemia (principal); E78.2 Mixed hyperlipidemia; I10 Essential (primary) hypertension; Z79.899 Other long term (current) drug therapy
CPT/HCPCS: 80048; 80061; 82043; 82570; 83036; 84443

== ENCOUNTER → 2018-06-08 | Outpatient (CLI) | payer MEDICARE, OTHER ==
--- NOTE | 2018-06-08 12:52 | VASCULAR PRELIM REPORT ---
Provider Note Provider Note: Right upper extremity is negative for DVT. A Picc line is in place.
--- NOTE | 2018-06-09 12:43 | XCELERA REPORT ---
[address] [address] Upper Extremity Venous Evaluation Name: WILLIAM LLOYD Age: 72 yrs Gender: Female : 1945 Patient Status: Outpatient Patient Location: ER Study Date: 06/08/2018 09:35 AM Procedure: Unilateral duplex scan of the right upper extremity veins was performed, including responses to compression and other maneuvers. Reason For Study: RUE pain and swellingh Ordering Physician: ARLIN GIBSON Performed By: Erik Colorado Right Side Venous Evaluation Normal vessel filling wall to wall, compression and augmentation as well as Colour flow down to the forearm veins. Interpretation Summary No duplex evidence of DVT or obstruction in the right upper extremity. : ARLIN GIBSON > Chandra Winn
== END ==
LOC: ER 09:06
PROVIDERS: ATTEND Physician Assistant
DX: M79.89 Other specified soft tissue disorders (principal)
CPT/HCPCS: 93971

== ENCOUNTER 2018-08-01 10:11 | Emergency (ER) | payer MEDICARE, OTHER ==
--- NOTE | 2018-08-01 11:05 | ER Document Report ---
ED Medical Screen (RME) - General Chief Complaint: Abdominal Pain Stated Complaint: ABDOMINAL PAIN Time Seen by Provider: 08/01/18 10:59 Primary Care Provider: SERVANDO GRAVES MD [Primary Care Provider] - Follow up as needed Mode of Arrival: Wheelchair Information source: Patient Notes: Patient presents to the emergency department with complaints of low abdominal pain, dizziness and no bowel movement for the past 3 days. Patient reports she has a history of colon cancer is worried about an obstruction. She reports she is been to see to providers Dr. Graves and Dr. Rodas regarding the symptoms for the past 2 weeks. Denies fever vomiting diarrhea. Reports she does not taste well anymore so she is not eating as much. Patient is usually ambulatory but she is in a wheelchair right now because she feels her dizzy. I have greeted and performed a rapid initial assessment of this patient. A comprehensive ED assessment and evaluation of the patient, analysis of test results and completion of the medical decision making process will be conducted by additional ED providers. Dictation of this chart was performed using voice recognition software; therefore, there may be some unintended grammatical errors. TRAVEL OUTSIDE OF THE [place] IN LAST 30 DAYS: No - Related Data Allergies/Adverse Reactions: aspirin Allergy (Verified 08/01/18 10:13) ciprofloxacin [From Cipro] Allergy (Verified 08/01/18 10:13) levofloxacin [From Levaquin] Allergy (Verified 08/01/18 10:13) Penicillins Allergy (Verified 08/01/18 10:13) Sulfa (Sulfonamide Antibiotics) Allergy (Verified 08/01/18 10:13) Past Medical History - Past Medical History Cardiac Medical History: Reports: Hx Atrial Fibrillation, Hx Hypercholesterolemia, Hx Hypertension Denies: Hx Coronary Artery Disease, Hx Heart Attack Endocrine Medical History: Reports: Hx Diabetes Mellitus Type 1, Hx Diabetes Mellitus Type 2 Renal/ Medical History: Denies: Hx Peritoneal Dialysis Malignancy Medical History: Reports: Hx Colorectal Cancer - Diagnosed 2 years ago and had surgery Past Surgical History: Reports: Hx Hysterectomy - Immunizations Hx Diphtheria, Pertussis, Tetanus Vaccination: Yes History of Influenza Vaccine for 11/2016 - 04/2017 Season: No Physical Exam - Vital signs Vitals: Temp Pulse Resp BP Pulse Ox 98.0 F 99 16 156/66 H 97 08/01/18 10:16 08/01/18 10:16 08/01/18 10:16 08/01/18 10:16 08/01/18 10:16 Course - Vital Signs Vital signs: Temp Pulse Resp BP Pulse Ox 98.0 F 99 16 156/66 H 97 08/01/18 10:16 08/01/18 10:16 08/01/18 10:16 08/01/18 10:16 08/01/18 10:16 Doctor's Discharge - Discharge Referrals: SERVANDO GRAVES MD [Primary Care Provider] - Follow up as needed
[2018-08-01 11:45] LABS: ABSOLUTE EOSINOPHILS # (AUTO) 0.1 10^3/uL (0.0-0.6); ABSOLUTE LYMPHOCYTES (AUTO) 1.2 10^3/uL (0.5-4.7); ABSOLUTE MONOCYTES (AUTO) 0.4 10^3/uL (0.1-1.4); ABSOLUTE NEUT (AUTO) 5.8 10^3/uL (1.7-8.2); BASOPHILS % (AUTO) 0.5 % (0-2); EOSINOPHILS % (AUTO) 1.6 % (0-6); HEMATOCRIT 39.4 % (36.0-47.0); HEMOGLOBIN 12.6 g/dL (12.0-15.5); LYMPHOCYTES % (AUTO) 16.2 % (13-45); MEAN CORPUSCULAR HEMOGLOBIN 22.6 pg (27.0-33.4); MEAN CORPUSCULAR HGB CONC 32.1 g/dL (32.0-36.0); MEAN CORPUSCULAR VOLUME 71 fl (80-97); MONOCYTES % (AUTO) 5.5 % (3-13); PLATELET COUNT 290 10^3/uL (150-450); RED BLOOD COUNT 5.58 10^6/uL (3.72-5.28); RED CELL DISTRIBUTION WIDTH 17.2 % (11.5-14.0); SEGMENTED NEUTROPHILS % (AUTO) 76.2 % (42-78); TOTAL CELLS COUNTED % (AUTO) 100 %; WHITE BLOOD COUNT 7.6 10^3/uL (4.0-10.5)
[2018-08-01 12:03] LABS: ALANINE AMINOTRANSFERASE 78 U/L (9-52); ALBUMIN 4.8 g/dL (3.5-5.0); ALKALINE PHOSPHATASE 61 U/L (38-126); ANION GAP 15 (5-19); ASPARTATE AMINO TRANSFERASE 70 U/L (14-36); BILIRUBIN,DIRECT 0.2 mg/dL (0.0-0.4); BILIRUBIN,TOTAL 0.4 mg/dL (0.2-1.3); BLOOD UREA NITROGEN 13 mg/dL (7-20); CALCIUM 10.1 mg/dL (8.4-10.2); CARBON DIOXIDE 23 mmol/L (22-30); CHLORIDE 102 mmol/L (98-107); GLUCOSE 293 mg/dL (75-110); POTASSIUM 4.4 mmol/L (3.6-5.0); SODIUM 140.4 mmol/L (137-145); TOTAL PROTEIN 7.8 g/dL (6.3-8.2)
--- NOTE | 2018-08-01 12:12 | RADIOLOGY REPORT (SQ) ---
EXAM DESCRIPTION: KUB/ABDOMEN (SINGLE VIEW) COMPLETED DATE/TIME: 08/01/2018 11:23 am REASON FOR STUDY: abd pain, constipation COMPARISON: PET-CT 12/31/2016 Three-way abdomen series 25089 NUMBER OF VIEWS: One view. TECHNIQUE: Supine radiographic image of the abdomen acquired. LIMITATIONS: None. FINDINGS: BOWEL GAS PATTERN: Normal bowel gas pattern. No dilated loops. Large amount of stool thro ughout the colon CALCIFICATIONS: No suspicious calcifications. SOFT TISSUES: No gross mass or suggestion of organomegaly. HARDWARE: Anastomotic rectosigmoid asad are present. Right lower quadrant surgical clips BONES: No acute fracture. No worrisome bone lesions. OTHER: No other significant finding. IMPRESSION: Constipation TECHNICAL DOCUMENTATION: JOB ID: [id number]- All Rights Reserved Reading location - IP/workstation name: [email or web address]
--- NOTE | 2018-08-01 12:22 | ER Document Report ---
ED General - General Chief Complaint: Abdominal Pain Stated Complaint: ABDOMINAL PAIN Time Seen by Provider: 08/01/18 10:59 Primary Care Provider: SERVANDO GRAVES MD [Primary Care Provider] - Follow up as needed Mode of Arrival: Wheelchair Notes: 72-year-old lady presents with lower abdominal pressure and decreased stool output for 3 days. Constant. Worsening. Associated with positive flatus. History of colectomy with reconnection, no stoma. No fever or urinary symptoms. Takes pain medicine. Cured colon cancer. TRAVEL OUTSIDE OF THE [place] IN LAST 30 DAYS: No - Related Data Allergies/Adverse Reactions: aspirin Allergy (Verified 08/01/18 10:13) ciprofloxacin [From Cipro] Allergy (Verified 08/01/18 10:13) levofloxacin [From Levaquin] Allergy (Verified 08/01/18 10:13) Penicillins Allergy (Verified 08/01/18 10:13) Sulfa (Sulfonamide Antibiotics) Allergy (Verified 08/01/18 10:13) Past Medical History - General Information source: Patient - Social History Smoking Status: Unknown if Ever Smoked Chew tobacco use (# tins/day): No Frequency of alcohol use: None Drug Abuse: None Family History: Reviewed & Not Pertinent Patient has suicidal ideation: No Patient has homicidal ideation: No - Past Medical History Cardiac Medical History: Reports: Hx Atrial Fibrillation, Hx Hypercholesterolemia, Hx Hypertension Denies: Hx Coronary Artery Disease, Hx Heart Attack Endocrine Medical History: Reports: Hx Diabetes Mellitus Type 1, Hx Diabetes Mellitus Type 2 Renal/ Medical History: Denies: Hx Peritoneal Dialysis Malignancy Medical History: Reports: Hx Colorectal Cancer - Diagnosed 2 years ago and had surgery Past Surgical History: Reports: Hx Hysterectomy - Immunizations Hx Diphtheria, Pertussis, Tetanus Vaccination: Yes Review of Systems - Review of Systems Notes: REVIEW OF SYSTEMS GEN: Denies fever, chills, weight loss ENT: Denies sore throat, nasal discharge, ear pain EYES: Denies blurry vision, eye pain, discharge CV: Denies chest pain, palpitations, edema RESP: Denies cough, shortness of breath, wheezing GI: Aminal pain MSK: Denies joint pain/swelling, edema, SKIN: Denies rash, skin lesions LYMPH: Denies swollen glands/lymph nodes NEURO: Denies headache, focal weakness or numbness, dizziness PSYCH: Denies depression, suicidal or homicidal ideation PHYSICAL EXAMINATION General: No acute distress, well-nourished Head: Atraumatic, normocephalic ENT: Mouth normal, oropharynx moist, no exudates or tonsillar enlargement Eyes: Conjunctiva normal, pupils equal, lids normal Neck: No JVD, supple, no guarding CVS: Normal rate, regular rhythm, no murmurs Resp: No resp distress, equal and normal breath sounds bilaterally GI: Soft protuberant abdomen with decreased bowel sounds but no tenderness or tympany Ext: No deformities, no edema, normal range of motion in upper and lower ext Back: No CVA or midline TTP Skin: No rash, warm Lymphatic: No lymphadeopathy noted Neuro: Awake, alert. Face symmetric. GCS 15. Physical Exam - Vital signs Vitals: Temp Pulse Resp BP Pulse Ox 98.0 F 99 16 156/66 H 97 08/01/18 10:16 08/01/18 10:16 08/01/18 10:16 08/01/18 10:16 08/01/18 10:16 Course - Re-evaluation Re-evalutation: 08/01/18 12:21 Patient presents with constipationno evidence of obstipation. History of colonic resection. Will check urine check labs and rule out obstruction with CT. Ordered test at triage included labs and x-ray which shows only constipation but I would like to CT to fully rule out obstructive process. 08/01/18 13:53 CT shows constipation no obstruction. Labs otherwise normal. Patient has A. fib and heart rates around 100 but she is comfortable. On reassessment she feels better. She also has white cells in her urine. Has many allergies. Will prescribe Ceftin for UTI and discussed upping MiraLAX at home for constipation. Stable for discharge home. Follow-up with Dr. Rodas. I have discussed with the patient there likely diagnosis, aftercare plan, follow-up plans and my usual and customary return precautions. They verbalized understanding of this. - Vital Signs Vital signs: Temp Pulse Resp BP Pulse Ox 98.0 F 99 16 156/66 H 97 08/01/18 10:16 08/01/18 10:16 08/01/18 10:16 08/01/18 10:16 08/01/18 10:16 - Laboratory Result Diagrams: 08/01/18 11:26 08/01/18 11:26 Laboratory results interpreted by me: 08/01/18 08/01/18 08/01/18 11:26 11:26 11:30 RBC 5.58 H MCV 71 L MCH 22.6 L RDW 17.2 H Glucose 293 H AST 70 H ALT 78 H Urine Glucose (UA) >=500 H Ur Leukocyte Esterase MODERATE H - Diagnostic Test Radiology reviewed: Reports reviewed Discharge - Discharge Clinical Impression: Cystitis without hematuria Constipation Qualifiers: Constipation type: unspecified constipation type Qualified Code(s): K59.00 - Constipation, unspecified Condition: Good Disposition: HOME, SELF-CARE Instructions: Abdominal Pain ([facility]), Constipation ([facility]), Urinary Tract Infection ([facility]) Prescriptions: Cefuroxime Axetil [Ceftin 500 mg Tablet] 1 tab PO BID #20 tablet Nitrofurantoin/Nitrofuran Mac [Macrobid 100 mg Capsule] 1 tab PO BID #20 capsule Polyethylene Glycol 3350 [Miralax] 1 cap PO DAILY #527 powder Referrals: SERVANDO GRAVES MD [Primary Care Provider] - Follow up as needed
[2018-08-01 12:31] LABS: APPEARANCE,URINE SLIGHTLY-CLOUDY; BILIRUBIN,URINE NEGATIVE (NEGATIVE); COLOR,URINE YELLOW; GLUCOSE, URINE >=500 mg/dL (NEGATIVE); KETONES,URINE NEGATIVE (NEGATIVE); LEUKOCYTE ESTERASE,URINE MODERATE (NEGATIVE); NITRITE,URINE NEGATIVE (NEGATIVE); PROTEIN,URINE NEGATIVE (NEGATIVE); URINE SPECIFIC GRAVITY 1.013; UROBILINOGEN,URINE NEGATIVE mg/dL (<2.0)
--- NOTE | 2018-08-01 13:46 | RADIOLOGY REPORT (SQ) ---
EXAM DESCRIPTION: CT ABD/PELVIS WITH IV ONLY COMPLETED DATE/TIME: 08/01/2018 1:23 pm REASON FOR STUDY: colon CA, SBO? COMPARISON: None. TECHNIQUE: CT scan of the abdomen and pelvis performed using helical scanning technique with dynamic intravenous contrast injection. No oral contrast. Images reviewed with lung, soft tissue, and bone windows. Reconstructed coronal and sagittal MPR images reviewed. Delayed images for evaluation of the urinary system also acquired. All images stored on PACS. All CT scanners at this facility use dose modulation, iterative reconstruction, and/or weight based d osing when appropriate to reduce radiation dose to as low as reasonably achievable (ALARA). [facility]: Dose Right [facility]: CareDose [facility]: Dose Right [facility]: Teradose 4D [facility]: [place] CONTRAST TYPE AND DOSE: contrast/concentration: Isovue 350.00 mg/ml; Total Contrast Delivered: 100.0 ml; Total Saline Delivered: 31.9 ml RENAL FUNCTION: GFR > 60. RADIATION DOSE: CT Rad equipment meets quality standard of care and radiation dose reduction techniq ues were employed. CTDIvol: 16.0 - 19.8 mGy. DLP: 1935 mGy-cm.. LIMITATIONS: None. FINDINGS: LOWER CHEST: No significant findings. No nodules or infiltrates. LIVER: Normal size. No masses. No dilated ducts. SPLEEN: Normal size. No focal lesions. PANCREAS: No masses. No significant calcifications. No adjacent inflammation or peripancreatic fluid collections. Pancreatic duct not dilated. GALLBLADDER: Gallstones. No inflammatory changes to suggest cholecystitis. ADRENAL GLANDS: No significant masses or asymmetry. RIGHT KIDNEY AND URETER: No solid masses. Tiny nonobstructive calculi in the right kidney. No hyd ronephrosis or hydroureter. LEFT KIDNEY AND URETER: No solid masses. No significant calcifications. No hydronephrosis or hydr oureter. AORTA AND VESSELS: No aneurysm. No dissection. Renal arteries, SMA, celiac without stenosis. Calcifi c atherosclerosis. RETROPERITONEUM: No retroperitoneal adenopathy, hemorrhage or masses. BOWEL AND PERITONEAL CAVITY: Postoperative findings of sigmorectal resection. Large burden of stool in the left and right colon. APPENDIX: Surgically absent. PELVIS: No mass. No free fluid. Normal bladder. ABDOMINAL WALL: No masses. Diastasis and broad-based midline ventral hernia BONES: No significant or acute findings. OTHER: No other significant finding. IMPRESSION: 1. No acute CT findings of the abdomen or pelvis to explain abdominal pain. No evidence of bowel obstruction. Large burden of stool in the left and right colon. Postoperative findings of sigmorectal resection. 2. Cholelithiasis. 3. Nonobstructive right nephrolithiasis. TECHNICAL DOCUMENTATION: JOB ID: [id number] Quality ID # [id number]: Final reports with documentation of one or more dose reduction techniques (e.g., Au tomated exposure control, adjustment of the mA and/or kV according to patient size, use of iterative reconstruction technique) 2010 [employer]- All Rights Reserved Reading location - IP/workstation name: [email or web address]
[2018-08-01 14:01] VITALS: BP 119/48
--- NOTE | 2018-08-01 19:36 | EKG REPORT ---
SEVERITY:- ABNORMAL ECG - SINUS TACHYCARDIA WITH IRREGULAR RATE 91-142 LEFT VENTRICULAR HYPERTROPHY : Confirmed by: Madison Barrios MD 01-Aug-2018 19:35:29
== END 2018-08-01 14:01 | disposition home or self-care (01) ==
LOC: ER 10:11
DX: N30.90 Cystitis, unspecified without hematuria (principal); K59.00 Constipation, unspecified; R10.30 Lower abdominal pain, unspecified; I48.91 Unspecified atrial fibrillation; E78.00 Pure hypercholesterolemia, unspecified; I10 Essential (primary) hypertension; E11.9 Type 2 diabetes mellitus without complications; Z88.6 Allergy status to analgesic agent; Z88.0 Allergy status to penicillin; Z88.3 Allergy status to other anti-infective agents; Z88.2 Allergy status to sulfonamides; Z85.038 Personal history of other malignant neoplasm of large intestine
CPT/HCPCS: 36415; 74018; 74177; 80053; 81001; 85025; 93005; 93010; 99284

== ENCOUNTER → 2018-08-28 | Outpatient (CLI) | payer MEDICARE, OTHER ==
--- NOTE | 2018-08-28 14:32 | RADIOLOGY REPORT (SQ) ---
EXAM DESCRIPTION: ACUTE ABDOMEN SERIES COMPLETED DATE/TIME: 08/28/2018 12:47 pm REASON FOR STUDY: UNSPECIFIED ABDOMINAL PAIN,CONSTIPATION,GASTRO-ESOPHAGEAL REFLUX DISEASE WI R10.9 UNSPECIFIED ABDOMINAL PAIN K59.00 CONSTIPATION, UNSPECIFIED K21.9 GASTRO-ESOPHAGEAL REFLUX DISEASE WITHOUT ESOPHAGITIS COMPARISON: CT abdomen pelvis 08/01/2018 KUB 08/01/2018 PET-CT 12/31/2016 NUMBER OF VIEWS: Three views. TECHNIQUE: Frontal chest, supine abdomen and upright abdomen radiographic images acquired. LIMITATIONS: None. FINDINGS: CHEST: Lungs clear of infiltrates. Cardiac silhouette size, gabbi unremarkable. FREE AIR: None. No abnormal gas collections. BOWEL GAS PATTERN: Nonobstructive pattern. No dilated loops or air fluid levels. CALCIFICATIONS: No suspicious calcifications. HARDWARE: Surgical clips right lower quadrant SOFT TISSUES: No gross mass or suggestion of organomegaly. BONES: No acute fracture. No worrisome bone lesions. OTHER: No other significant finding. IMPRESSION: NO RADIOGRAPHIC EVIDENCE FOR ACUTE ABDOMINAL DISEASE. TECHNICAL DOCUMENTATION: JOB ID: [id number] [employer]- All Rights Reserved Reading location - IP/workstation name: [email or web address]
== END ==
LOC: OD 12:04
PROVIDERS: ATTEND Family Medicine
DX: K59.00 Constipation, unspecified (principal); K21.9 Gastro-esophageal reflux disease without esophagitis; R10.9 Unspecified abdominal pain
CPT/HCPCS: 74022

== ENCOUNTER → 2018-09-27 | Outpatient (CLI) | payer MEDICARE, OTHER ==
--- NOTE | 2018-09-27 14:00 | RADIOLOGY REPORT (SQ) ---
EXAM DESCRIPTION: CT CHEST WITHOUT COMPLETED DATE/TIME: 09/27/2018 10:15 am REASON FOR STUDY: PULMONARY NODULES R91.8 OTHER NONSPECIFIC ABNORMAL FINDING OF LUNG FIELD COMPARISON: 09/27/2017 TECHNIQUE: CT scan performed of the chest without intravenous contrast. Images reviewed with lung, soft tissue and bone windows. Reconstructed coronal and sagittal MPR images reviewed. All images st ored on PACS. All CT scanners at this facility use dose modulation, iterative reconstruction, and/or weight based d osing when appropriate to reduce radiation dose to as low as reasonably achievable (ALARA). [facility]: Dose Right [facility]: CareDose [facility]: Dose Right [facility]: Teradose 4D [facility]: Smart Smart Patients RADIATION DOSE: CT Rad equipment meets quality standard of care and radiation dose reduction techniq ues were employed. CTDIvol: 12.0 mGy. DLP: 443 mGy-cm. mGy. LIMITATIONS: No technical limitations. FINDINGS: LUNGS AND PLEURA: Left lower lobe pulmonary nodule measures 1.3 x 1.7 cm, not significantl y changed. No new nodules. No effusions. HILAR AND MEDIASTINAL STRUCTURES: No identified masses or abnormal nodes. No obvious aneurysm. HEART AND VASCULAR STRUCTURES: No aneurysm. No pericardial effusion. UPPER ABDOMEN: No significant findings. Limited exam. THYROID AND OTHER SOFT TISSUES: No masses. No adenopathy. BONES: No significant finding. HARDWARE: None in the chest. OTHER: No other significant findings. IMPRESSION: Stable pulmonary nodule left lower lobe. TECHNICAL DOCUMENTATION: JOB ID: [id number] Quality ID # [id number]: Final reports with documentation of one or more dose reduction techniques (e.g., Au tomated exposure control, adjustment of the mA and/or kV according to patient size, use of iterative reconstruction technique) 2010 [employer]- All Rights Reserved Reading location - IP/workstation name: [email or web address]
== END ==
LOC: RAD 09:57
PROVIDERS: ATTEND Internal Medicine Pulmonary Disease
DX: R91.1 Solitary pulmonary nodule (principal)
CPT/HCPCS: 71250

== ENCOUNTER → 2018-12-02 | Outpatient (CLI) | payer MEDICARE, OTHER | LOC: OD 10:48 | PROVIDERS: ATTEND Family Medicine | DX: E11.65 Type 2 diabetes mellitus with hyperglycemia (principal); Z79.899 Other long term (current) drug therapy | CPT/HCPCS: 36415; 83036 ==

== ENCOUNTER 2018-12-13 18:20 | Emergency (ER) | payer MEDICARE, OTHER ==
[2018-12-13] MEDS ORDERED: METOPROLOL TARTRATE PF/INJ 5 MG/5 ML SDV IV ONE ×2 (18:33→18:38)
[2018-12-13] MEDS ORDERED: METOPROLOL SUCCINATE 50 MG TAB.SR.24H PO ONE (18:44)
--- NOTE | 2018-12-13 18:46 | ER Document Report ---
ED General - General Chief Complaint: Chest Pain Stated Complaint: CHEST PAIN Time Seen by Provider: 12/13/18 18:30 Primary Care Provider: DK MARTIN MD [Primary Care Provider] - Follow up as needed Mode of Arrival: Medic Information source: Patient, Relative, Emergency Med Personnel TRAVEL OUTSIDE OF THE [place] IN LAST 30 DAYS: No - HPI Onset: This morning Onset/Duration: Persistent Quality of pain: Dull - Mr. May is an 16-year-old male resenting with a chief complaint of Onset Duration Quality Location Radiation Precipitating factors Relieving factors Severity Pertinent prior history Mr. May is an 16-year-old male resenting with a chief complaint of Onset Duration Quality Location Radiation Precipitating factors Relieving factors Severity Pert inent prior history Context: 73-year-old female with a chief complaint of palpitations, lightheadedness and chest tightness. Patient has prior history of paroxysmal atrial fibrillation but is currently not anticoagulated. She has been taking metoprolol for rate control but apparently missed the medication this morning. Intermittent palpitations for several days. Worsening symptoms since this morning as noted above. Patient had some transient vague chest tightness associated with mild presyncope and called EMS. Medic crew arrived at patient's home and was unable to establish an IV. They found her to have a heart rate of 180 and on the monitor this was read as SVT. They cardioverted the patient twice at 50 J. Her rate briefly slowed to about 130 and then sped back up to 180. They spoke with me by telephone when I recommended establishment of an intraosseous line. They subsequently gave her IV adenosine. Rate was about 140 upon arrival here and on our monitor the patient was clearly in atrial fibrillation. She generally felt better and denied any ongoing chest pain or presyncopal symptoms. Patient denies fever, chills, vomiting or diarrhea. Denies dyspnea or cough. She is a non-smoker. To the best of her knowledge she has never had cardiac catheterization. - Related Data Allergies/Adverse Reactions: aspirin Allergy (Verified 08/01/18 10:13) ciprofloxacin [From Cipro] Allergy (Verified 08/01/18 10:13) levofloxacin [From Levaquin] Allergy (Verified 08/01/18 10:13) Penicillins Allergy (Verified 08/01/18 10:13) Sulfa (Sulfonamide Antibiotics) Allergy (Verified 08/01/18 10:13) Past Medical History - General Information source: Patient, Relative, Emergency Med Personnel - Social History Smoking Status: Never Smoker Frequency of alcohol use: None Drug Abuse: None Family History: Reviewed & Not Pertinent - Past Medical History Cardiac Medical History: Reports: Hx Atrial Fibrillation, Hx Hypercholesterolemia, Hx Hypertension Denies: Hx Coronary Artery Disease, Hx Heart Attack Endocrine Medical History: Reports: Hx Diabetes Mellitus Type 1, Hx Diabetes Mellitus Type 2 Renal/ Medical History: Denies: Hx Peritoneal Dialysis Malignancy Medical History: Reports: Hx Colorectal Cancer - Diagnosed 2 years ago and had surgery Past Surgical History: Reports: Hx Hysterectomy - Immunizations Hx Diphtheria, Pertussis, Tetanus Vaccination: Yes Review of Systems - Review of Systems Notes: Constitutional: Negative for fever. HENT: Negative for sore throat. Eyes: Negative for visual changes. Cardiovascular: As per HPI. Respiratory: Negative for shortness of breath. Gastrointestinal: Negative for abdominal pain, vomiting or diarrhea. Genitourinary: Negative for dysuria. Musculoskeletal: Negative for back pain. Skin: Negative for rash. Neurological: Negative for headaches, weakness or numbness. 10 point ROS negative except as marked above and in HPI. Physical Exam - Vital signs Vitals: Resp Pulse Ox 20 95 12/13/18 18:32 12/13/18 18:32 Notes: GENERAL: Elderly female appearing slightly anxious. SKIN: Good turgor. Ecchymoses of both forearms. HEAD: Normocephalic atraumatic. EYES: PERRLA. Conjunctivae and sclerae clear. EARS: CANALS AND TMS CLEAR. NOSE: CLEAR. MOUTH: Moist mucosa. Good dentition. No stridor or edema. No drooling. NECK: Supple. No masses or thyromegaly. No adenopathy. Carotids 2+ without bruits. No JVD. BACK: Symmetrical without tenderness. CHEST: Respirations unlabored. Breath sounds clear and symmetrical. HEART: Tachycardic with irregularly irregular rhythm. No murmur gallop or rub. ABDOMEN: Soft nontender without masses, organomegaly or rebound. Bowel sounds normally active. No bruits. GENITALIA: Deferred. EXTREMITIES: 1+ pretibial edema bilaterally. No calf tenderness. Cap refill less than 1.5 seconds. Dorsalis pedis and posterior tibial pulses 3+ and symmetrical. NEUROLOGICAL: GCS 15. Alert and oriented x3. Fluent speech. Cranial nerves II through XII intact. Sensorimotor and cerebellar normal. Normal tone. Course - Re-evaluation Re-evalutation: 12/13/18 18:54 EMS crew is been treating this patient has a presumed supraventricular tachycardia. Upon arrival it was my assessment this patient was actually in atrial fibrillation with rapid ventricular response. She appeared hemodynamically stable and had no altered mental status and no current complaint of chest pain or any evidence of respiratory distress. We were able to establish a peripheral IV. Patient was given IV metoprolol and her right rapidly slowed although she was in persistent atrial fib. The 12 lead EKG showed no evidence of acute ME. Initial studies requested: Serial 12-lead EKGs, chest x-ray, thyroid profile, p late chemistry profile, complete blood count. Patient is receiving supplemental oxygen and remains on tenuous cardiac monitoring. Anticipate need for admission. The care will be turned over at this time to Dr. Felicitas Nicholas. - Vital Signs Vital signs: Temp Pulse Resp BP Pulse Ox 20 163/94 H 96 12/13/18 18:33 12/13/18 18:33 12/13/18 18:33 - Laboratory Result Diagrams: 12/13/18 18:27 12/13/18 18:27 Laboratory results interpreted by me: 12/13/18 18:27 RBC 5.60 H MCV 74 L MCH 24.4 L RDW 15.6 H - EKG Interpretation by Me Additional EKG results interpreted by me: 12/13/18 18:59 Initial twelve-lead EKG reviewed contemporaneously by me demonstrates atrial fibrillation at a rate of 149. LVH present. Repeat twelve-lead EKG at 1844 hrs. shows patient converted to sinus rhythm first-degree AV block left ventricular hypertrophy. Ventricular rate currently 95. Critical Care Note - Critical Care Note Comments: Patient presented with atrial fibrillation with rapid ventricular response. She was placed on cardiac monitoring. IV was established and patient received IV metoprolol. She remained in atrial fib with right now down to 95. Discharge - Discharge Clinical Impression: Atrial fibrillation with rapid ventricular response Condition: Stable Disposition: OTHER Referrals: DK MARTIN MD [Primary Care Provider] - Follow up as needed
[2018-12-13 18:56] LABS: ABSOLUTE LYMPHOCYTES (AUTO) 1.4 10^3/uL (0.5-4.7); ABSOLUTE MONOCYTES (AUTO) 0.4 10^3/uL (0.1-1.4); ABSOLUTE NEUT (AUTO) 4.2 10^3/uL (1.7-8.2); BASOPHILS % (AUTO) 0.3 % (0-2); EOSINOPHILS % (AUTO) 0.6 % (0-6); HEMATOCRIT 41.5 % (36.0-47.0); HEMOGLOBIN 13.6 g/dL (12.0-15.5); LYMPHOCYTES % (AUTO) 22.4 % (13-45); MEAN CORPUSCULAR HEMOGLOBIN 24.4 pg (27.0-33.4); MEAN CORPUSCULAR HGB CONC 32.9 g/dL (32.0-36.0); MEAN CORPUSCULAR VOLUME 74 fl (80-97); MONOCYTES % (AUTO) 6.6 % (3-13); PLATELET COUNT 225 10^3/uL (150-450); RED CELL DISTRIBUTION WIDTH 15.6 % (11.5-14.0); SEGMENTED NEUTROPHILS % (AUTO) 70.1 % (42-78); TOTAL CELLS COUNTED % (AUTO) 100 %; WHITE BLOOD COUNT 6.1 10^3/uL (4.0-10.5)
[2018-12-13 19:03] LABS: INTERNATIONAL RATION (INR) 0.96; PROTHROMBIN TIME 12.8 SEC (11.4-15.4)
--- NOTE | 2018-12-13 19:09 | RADIOLOGY REPORT (SQ) ---
EXAM DESCRIPTION: CHEST SINGLE VIEW COMPLETED DATE/TIME: 12/13/2018 6:52 pm REASON FOR STUDY: CP COMPARISON: 11/24/2016 TECHNIQUE: Single frontal radiographic view of the chest acquired. NUMBER OF VIEWS: One view. LIMITATIONS: None. FINDINGS: LUNGS AND PLEURA: No pneumothorax. No consolidation or pleural effusion. MEDIASTINUM AND HILAR STRUCTURES: Stable. HEART AND VASCULAR STRUCTURES: Stable. BONES: No acute findings. HARDWARE: None in the chest. OTHER: No other significant finding. IMPRESSION: NO ACUTE FINDINGS. TECHNICAL DOCUMENTATION: JOB ID: [id number]-72 2010 [employer]- All Rights Reserved Reading location - IP/workstation name: [email or web address]
[2018-12-13 19:26] LABS: CREATINE KINASE MB 2.32 ng/mL (<4.55)
[2018-12-13 19:27] LABS: TROPONIN I < 0.012 ng/mL
[2018-12-13 20:02] LABS: ALBUMIN 5.1 g/dL (3.5-5.0); ALKALINE PHOSPHATASE 68 U/L (38-126); ANION GAP 18 (5-19); ASPARTATE AMINO TRANSFERASE 57 U/L (14-36); BILIRUBIN,DIRECT 0.4 mg/dL (0.0-0.4); BILIRUBIN,TOTAL 0.4 mg/dL (0.2-1.3); BLOOD UREA NITROGEN 13 mg/dL (7-20); CARBON DIOXIDE 20 mmol/L (22-30); CHLORIDE 101 mmol/L (98-107); CREATINE KINASE 157 U/L (30-135); GLUCOSE 351 mg/dL (75-110); POTASSIUM 4.4 mmol/L (3.6-5.0); TOTAL PROTEIN 8.2 g/dL (6.3-8.2)
--- NOTE | 2018-12-13 21:52 | EKG REPORT ---
SEVERITY:- ABNORMAL ECG - SINUS RHYTHM FIRST DEGREE AV BLOCK LEFT AXIS DEVIATION LEFT VENTRICULAR HYPERTROPHY : Confirmed by: Otoniel Webster MD 13-Dec-2018 21:52:29
--- NOTE | 2018-12-13 21:54 | EKG REPORT ---
SEVERITY:- ABNORMAL ECG - ATRIAL FIBRILLATION WITH RVR LVH WITH SECONDARY REPOLARIZATION ABNORMALITY : Confirmed by: Otoniel Webster MD 13-Dec-2018 21:53:07
[2018-12-14] MEDS ORDERED: MAGNESIUM SULFATE/D5W 1 GM/100 ML RTUPB IV SCH
[2018-12-14 00:29] LABS: APPEARANCE,URINE CLEAR; BILIRUBIN,URINE NEGATIVE (NEGATIVE); COLOR,URINE YELLOW; GLUCOSE, URINE >=500 mg/dL (NEGATIVE); KETONES,URINE NEGATIVE (NEGATIVE); LEUKOCYTE ESTERASE,URINE NEGATIVE (NEGATIVE); NITRITE,URINE NEGATIVE (NEGATIVE); PROTEIN,URINE NEGATIVE (NEGATIVE); URINE SPECIFIC GRAVITY 1.015; UROBILINOGEN,URINE NEGATIVE mg/dL (<2.0)
[2018-12-14 01:35] VITALS: BP 161/59
--- NOTE | 2018-12-14 01:56 | ER Document Report ---
Entered by CORTNEY CONSTANTINO SCRIBE 12/13/18 [id number] Acting as scribe for:GABY CARRANZA DO Doctor's Note Notes: 12/13/18 22:40 Received transition of care of this patient from Dr. Ortiz at 1900. Patient has been in sinus rhythm after being given metoprolol. She has had no further symptoms. Repeat troponin is 0.012. No acute findings on x-ray. Patient is able to ambulate and feels better at this time. She does not think that she finished taking her medications this morning. It does not appear that she took her Amaryl this morning based on her blood sugar. Patient has apparently seen a car worker in [place], Dr. Moore, who is relief mate. He had informed at one time that she would probably need an ablation but the patient did not want to have one. I have discussed calling her relief mate this evening and transferring her for evaluation for potential ablation. Patient does not want to do this. I have informed her that she could potentially go back into a rapid heart rate. She understands and she does not want to be transferred. She would prefer to go home. Patient also informed me that she recently saw her urologist and was started on medications for urinary tract infection and she had dysuria. It is since resolved since starting on doxycycline. Urine ordered and pending. 12/14/18 01:27 Magnesium has been replaced. Patient feels well would like to go home. Heart rate is currently 89 and a sinus rhythm. Patient is instructed to please make sure she is taking her medications as instructed at home. No evidence for urinary tract infection. Otherwise appears well. Vitals stable. Stable for discharge. Discharge - Discharge Clinical Impression: Atrial fibrillation with rapid ventricular response, Hypomagnesemia Condition: Stable Disposition: HOME, SELF-CARE Instructions: Atrial Fibrillation ([facility]) Additional Instructions: Please make sure you are taking your medications as prescribed. Prescriptions: Magnesium Oxide [Mag-Ox 400 mg Tablet] 400 mg PO BID #60 tab Referrals: LUPIS MOORE MD [NO LOCAL MD] - Follow up in 3-5 days DK MARTIN MD [Primary Care Provider] - Follow up in 3-5 days I personally performed the services described in the documentation, reviewed and edited the documentation which was dictated to the scribe in my presence, and it accurately records my words and actions.
== END 2018-12-14 01:59 | disposition home or self-care (01) ==
LOC: ER 18:20
DX: I48.0 Paroxysmal atrial fibrillation (principal); E83.42 Hypomagnesemia; R00.2 Palpitations; R42 Dizziness and giddiness; R07.89 Other chest pain; R55 Syncope and collapse; R00.0 Tachycardia, unspecified; I44.0 Atrioventricular block, first degree; R60.0 Localized edema; R58 Hemorrhage, not elsewhere classified; I11.9 Hypertensive heart disease without heart failure; E11.9 Type 2 diabetes mellitus without complications; Z79.84 Long term (current) use of oral hypoglycemic drugs; Z79.899 Other long term (current) drug therapy; Z85.048 Personal history of other malignant neoplasm of rectum, rectosigmoid junction, and anus; Z88.8 Allergy status to other drugs, medicaments and biological substances; Z88.1 Allergy status to other antibiotic agents; Z88.0 Allergy status to penicillin; Z88.2 Allergy status to sulfonamides
CPT/HCPCS: 93005; 36415; 82553; 82962; 82550; 83735; 84100; 84443; 85025; 85610; 80053; 81001; 84484; 71045; 93010; J3490; J3475; A9270; 96365; 96375; 99285

== ENCOUNTER 2018-12-25 19:08 | Emergency (ER) | payer MEDICARE, OTHER ==
--- NOTE | 2018-12-25 19:34 | RADIOLOGY REPORT (SQ) ---
EXAM DESCRIPTION: CHEST SINGLE VIEW COMPLETED DATE/TIME: 12/25/2018 7:23 pm REASON FOR STUDY: bed 11 cp COMPARISON: None. EXAM PARAMETERS: NUMBER OF VIEWS: One view. TECHNIQUE: Single frontal radiographic view of the chest acquired. RADIATION DOSE: NA LIMITATIONS: None. FINDINGS: LUNGS AND PLEURA: No opacities, masses or pneumothorax. No pleural effusion. MEDIASTINUM AND HILAR STRUCTURES: No masses. Contour normal. HEART AND VASCULAR STRUCTURES: Heart normal in size. Normal vasculature. BONES: No acute findings. HARDWARE: None in the chest. OTHER: No other significant finding. IMPRESSION: NO ACUTE RADIOGRAPHIC FINDING IN THE CHEST. TECHNICAL DOCUMENTATION: JOB ID: [id number] [employer]- All Rights Reserved Reading location - IP/workstation name: [email or web address]
[2018-12-25 19:40] LABS: ABSOLUTE EOSINOPHILS # (AUTO) 0.1 10^3/uL (0.0-0.6); ABSOLUTE LYMPHOCYTES (AUTO) 1.7 10^3/uL (0.5-4.7); ABSOLUTE MONOCYTES (AUTO) 0.5 10^3/uL (0.1-1.4); ABSOLUTE NEUT (AUTO) 5.4 10^3/uL (1.7-8.2); BASOPHILS % (AUTO) 0.4 % (0-2); EOSINOPHILS % (AUTO) 1.5 % (0-6); HEMATOCRIT 39.3 % (36.0-47.0); LYMPHOCYTES % (AUTO) 22.2 % (13-45); MEAN CORPUSCULAR HEMOGLOBIN 24.4 pg (27.0-33.4); MEAN CORPUSCULAR VOLUME 74 fl (80-97); MONOCYTES % (AUTO) 6.2 % (3-13); PLATELET COUNT 257 10^3/uL (150-450); RED BLOOD COUNT 5.31 10^6/uL (3.72-5.28); RED CELL DISTRIBUTION WIDTH 15.7 % (11.5-14.0); SEGMENTED NEUTROPHILS % (AUTO) 69.7 % (42-78); TOTAL CELLS COUNTED % (AUTO) 100 %; WHITE BLOOD COUNT 7.8 10^3/uL (4.0-10.5)
--- NOTE | 2018-12-25 20:00 | ER Document Report ---
ED General - General Chief Complaint: Upper Abdominal Pain Stated Complaint: IRREGULAR HEART RATE Time Seen by Provider: 12/25/18 20:00 Primary Care Provider: DK MARTIN MD [Primary Care Provider] - Follow up as needed TRAVEL OUTSIDE OF THE [place] IN LAST 30 DAYS: No - HPI Patient complains to provider of: abd pain Notes: 73 y/o presenting to ED for evaluation of upper abdominal pain w/ nausea and heart fluttering that occurred after eating no fever or chills no vomiting although felt very nauseated no urinary pain or blood in urine no back pain she had a neg nuclear stress test 2 years ago she has a h/o paroxysmal a-fib and is on metoprolol and xarelto for that and compliant - Related Data Allergies/Adverse Reactions: aspirin Allergy (Verified 12/13/18 19:57) ciprofloxacin [From Cipro] Allergy (Verified 12/13/18 19:57) levofloxacin [From Levaquin] Allergy (Verified 12/13/18 19:57) Penicillins Allergy (Verified 12/13/18 19:57) Sulfa (Sulfonamide Antibiotics) Allergy (Verified 12/13/18 19:57) Home Medications: Xarelto. Magnesium. Naproxen Past Medical History - Social History Smoking Status: Never Smoker Chew tobacco use (# tins/day): No Frequency of alcohol use: None Drug Abuse: None Family History: Reviewed & Not Pertinent Patient has suicidal ideation: No Patient has homicidal ideation: No - Past Medical History Cardiac Medical History: Reports: Hx Atrial Fibrillation, Hx Hypercholesterolem ia, Hx Hypertension Denies: Hx Coronary Artery Disease, Hx Heart Attack Endocrine Medical History: Reports: Hx Diabetes Mellitus Type 1, Hx Diabetes Mellitus Type 2 Renal/ Medical History: Denies: Hx Peritoneal Dialysis Malignancy Medical History: Reports: Hx Colorectal Cancer - Diagnosed 2 years ago and had surgery Past Surgical History: Reports: Hx Hysterectomy - Immunizations Hx Diphtheria, Pertussis, Tetanus Vaccination: Yes Review of Systems - Review of Systems Constitutional: No symptoms reported EENT: No symptoms reported Cardiovascular: No symptoms reported Respiratory: No symptoms reported Gastrointestinal: Abdominal pain, Nausea. denies: Diarrhea, Vomiting Genitourinary: No symptoms reported Female Genitourinary: No symptoms reported Musculoskeletal: No symptoms reported Skin: No symptoms reported Hematologic/Lymphatic: No symptoms reported Neurological/Psychological: No symptoms reported Physical Exam - Vital signs Vitals: Temp 98.4 F 12/25/18 19:12 Interpretation: Normal - General General appearance: Appears well, Alert - HEENT Head: Normocephalic, Atraumatic Eyes: Normal Pupils: PERRL - Respiratory Respiratory status: No respiratory distress Chest status: Nontender Breath sounds: Normal Chest palpation: Normal - Cardiovascular Rhythm: Regular Heart sounds: Normal auscultation Murmur: No - Abdominal Inspection: Normal Distension: No distension Bowel sounds: Normal Tenderness: Tender. No: Araya's sign Organomegaly: No organomegaly - Back Back: Normal, Nontender - Extremities General upper extremity: Normal inspection, Nontender, Normal color, Normal ROM, Normal temperature General lower extremity: Normal inspection, Nontender, Normal color, Normal ROM, Normal temperature, Normal weight bearing. No: Eric's sign - Neurological Neuro grossly intact: Yes Cognition: Normal Orientation: AAOx4 Deana Coma Scale Eye Opening: Spontaneous [place] Coma Scale Verbal: Oriented Deana Coma Scale Motor: Obeys Commands [place] Coma Scale Total: 15 Speech: Normal Motor strength normal: LUE, RUE, LLE, RLE Sensory: Normal - Psychological Associated symptoms: Normal affect, Normal mood - Skin Skin Temperature: Warm Skin Moisture: Dry Skin Color: Normal Course - Re-evaluation Re-evalutation: 12/26/18 00:24 epigastric to RUQ pain w/ palpitations in NSR here and compliant w/ xarelto workup likely reflective of biliary colic will refer to surgery as outpt as patient is pain free now - Vital Signs Vital signs: Temp Pulse Resp BP Pulse Ox 98.3 F 15 137/56 H 95 12/25/18 19:13 12/25/18 23:00 12/25/18 22:01 12/25/18 23:00 - Laboratory Result Diagrams: 12/25/18 19:23 12/25/18 19:23 Laboratory results interpreted by me: 12/25/18 12/25/18 12/25/18 19:23 19:23 19:23 RBC 5.31 H MCV 74 L MCH 24.4 L RDW 15.7 H Glucose 279 H Calcium 10.5 H Magnesium 1.5 L AST 46 H Lipase 12/25/18 19:23 RBC MCV MCH RDW Glucose Calcium Magnesium AST Lipase 400.8 H - Diagnostic Test Radiology reviewed: Image reviewed, Reports reviewed - EKG Interpretation by Me Additional EKG results interpreted by me: 12/26/18 00:25 NSR, rate of 98, PAC, LAD, no ST changes Discharge - Discharge Clinical Impression: Biliary colic, Hypomagnesemia, Elevated blood pressure reading Condition: Stable Disposition: HOME, SELF-CARE Instructions: Gallbladder Disease (OM) Additional Instructions: follow up with surgeon as directed return to the ED for worsening follow up with your heart doctor for palpitation sensation Referrals: DK MARTIN MD [Primary Care Provider] - Follow up as needed SUSAN QUINN MD [ACTIVE STAFF] - Follow up as needed
[2018-12-25 20:01] LABS: ALBUMIN 4.8 g/dL (3.5-5.0); ALKALINE PHOSPHATASE 59 U/L (38-126); ANION GAP 15 (5-19); ASPARTATE AMINO TRANSFERASE 46 U/L (14-36); BILIRUBIN,DIRECT 0.2 mg/dL (0.0-0.4); BILIRUBIN,TOTAL 0.4 mg/dL (0.2-1.3); BLOOD UREA NITROGEN 13 mg/dL (7-20); CALCIUM 10.5 mg/dL (8.4-10.2); CARBON DIOXIDE 23 mmol/L (22-30); CHLORIDE 103 mmol/L (98-107); CREATINE KINASE 65 U/L (30-135); GLUCOSE 279 mg/dL (75-110); POTASSIUM 4.5 mmol/L (3.6-5.0); TOTAL PROTEIN 7.7 g/dL (6.3-8.2)
[2018-12-25 20:12] LABS: CREATINE KINASE MB 0.95 ng/mL (<4.55)
[2018-12-25 20:13] LABS: TROPONIN I < 0.012 ng/mL
[2018-12-25] MEDS ORDERED: NORMAL SALINE 500 ML IV ONE (20:16)
[2018-12-25] MEDS: MAGNESIUM SULFATE/D5W 1 GM/100 ML RTUPB IV SCH ×2 (21:57→23:20)
--- NOTE | 2018-12-25 23:30 | EKG REPORT ---
SEVERITY:- ABNORMAL ECG - SINUS RHYTHM ATRIAL PREMATURE COMPLEX LEFT AXIS DEVIATION PROBABLE LEFT VENTRICULAR HYPERTROPHY : Confirmed by: Madison Barrios MD 25-Dec-2018 23:30:26
--- NOTE | 2018-12-25 23:50 | RADIOLOGY REPORT (SQ) ---
EXAM DESCRIPTION: [facility]: CT ABDOMEN PELVIS WITH IV CONTRAST CLINICAL HISTORY: 73 years Female; abdominal pain TECHNIQUE: CT of the abdomen and pelvis using intravenous contrast. All CT scans at this facility use dose modulation, iterative reconstruction, and/or weight based dosing when appropriate to reduce radiation dose to as low as reasonably achievable. COMPARISON: CT 08/01/2018 FINDINGS: Abdomen: Liver: Hypodense as on prior exam. No focal lesion or ductal distention. Gallbladder: Calcified stones as on prior exam. Pancreas:Within normal limits Spleen:Within normal limits Right kidney:No hydronephrosis. No focal lesion. Left kidney:No hydronephrosis. No focal lesion. Adrenal glands:Within normal limits Vascular structures: Extensive aortic and branch calcifications as on prior exam. No aortic aneurysm or dissection. No retroperitoneal adenopathy. Pelvis: Laxity of the anterior abdominal wall is similar to prior exam. No acute edema. Small bowel:No significant distention. Appendix: Surgically absent Colon:No distention or acute pericolonic edema. No free intraperitoneal fluid or air. Bones: Chronic degenerative changes are seen throughout the lumbar spine and thoracic spine. No acute bone findings. Bladder: Unremarkable. No pelvic mass or adenopathy. IMPRESSION: 1. No acute findings. No significant change since 08/01/2018. 2. Cholelithiasis
[2018-12-26 01:04] VITALS: BP 138/51
== END 2018-12-26 01:05 | disposition home or self-care (01) ==
LOC: ER 19:08
DX: K80.50 Calculus of bile duct without cholangitis or cholecystitis without obstruction (principal); E83.42 Hypomagnesemia; R10.10 Upper abdominal pain, unspecified; R00.2 Palpitations; R11.0 Nausea; I48.91 Unspecified atrial fibrillation; I10 Essential (primary) hypertension; E11.9 Type 2 diabetes mellitus without complications
CPT/HCPCS: 93005; 36415; 82553; 82550; 83690; 83735; 85025; 80053; 84484; 71045; 74177; 93010; J3475; J7040

== ENCOUNTER → 2019-06-09 | Outpatient (CLI) | payer MEDICARE, OTHER ==
[2019-06-09 10:58] LABS: ANION GAP 11 (5-19); BLOOD UREA NITROGEN 15 mg/dL (7-20); CALCIUM 9.6 mg/dL (8.4-10.2); CARBON DIOXIDE 23 mmol/L (22-30); CHLORIDE 102 mmol/L (98-107); CHOLESTEROL 116.15 mg/dL (0-200); GLUCOSE 234 mg/dL (75-110); POTASSIUM 4.3 mmol/L (3.6-5.0); TRIGLYCERIDES 219 mg/dL (<150)
[2019-06-09 11:09] LABS: DIRECT LDL 62 mg/dL (<100)
[2019-06-09 11:16] LABS: VLDL CHOLESTEROL 43.8 mg/dL (10-31)
[2019-06-09 11:25] LABS: ALBUMIN 4.4 g/dL (3.5-5.0); ALKALINE PHOSPHATASE 54 U/L (38-126); ANION GAP 11 (5-19); ASPARTATE AMINO TRANSFERASE 56 U/L (14-36); BLOOD UREA NITROGEN 15 mg/dL (7-20); CALCIUM 9.6 mg/dL (8.4-10.2); CARBON DIOXIDE 23 mmol/L (22-30); CHLORIDE 102 mmol/L (98-107); GLUCOSE 234 mg/dL (75-110); POTASSIUM 4.3 mmol/L (3.6-5.0)
[2019-06-09 11:26] LABS: BILIRUBIN,DIRECT 0.1 mg/dL (0.0-0.4); BILIRUBIN,TOTAL 0.6 mg/dL (0.2-1.3)
[2019-06-09 11:28] LABS: TOTAL PROTEIN 7.2 g/dL (6.3-8.2)
[2019-06-10 08:37] LABS: CREATININE URINE 122.3 mg/dL (Not Estab.); MICROALBUMIN URINE 36.7 ug/mL (Not Estab.)
== END ==
LOC: OD 09:06
PROVIDERS: ATTEND Student in an Organized Health Care Education/Training Program
DX: E11.65 Type 2 diabetes mellitus with hyperglycemia (principal); E78.2 Mixed hyperlipidemia; I10 Essential (primary) hypertension; Z79.899 Other long term (current) drug therapy
CPT/HCPCS: 36415; 80053; 80061; 82043; 82570; 83036; 84443

== ENCOUNTER → 2019-12-23 | Outpatient (CLI) | payer MEDICARE, OTHER | LOC: OD 11:57 | PROVIDERS: ATTEND Family Medicine | DX: E11.65 Type 2 diabetes mellitus with hyperglycemia (principal) | CPT/HCPCS: 36415; 83036 ==